=== PATIENT | male | born 1980 | race Hispanic/Latino ===

== ENCOUNTER 2023-08-21 08:03 | Emergency (ER) | payer SELFPAY ==
[2023-08-21] MEDS ORDERED: Lidocaine 1% PF 5 ML VIAL ONE (09:01)
[2023-08-21] MEDS ORDERED: Triple Antibiotic Oint 1 GM Packet ONE (09:36)
[2023-08-21] MEDS ORDERED: Boostrix 0.5 ML (Tdap) VIAL (>/=7 yrs of age) ONE (09:48)
== END 2023-08-21 10:10 | disposition home or self-care (01) ==
LOC: ERS 08:03
DX: L03.011 Cellulitis of right finger (principal); F17.210 Nicotine dependence, cigarettes, uncomplicated; Z23 Encounter for immunization
CPT/HCPCS: 10060; 90471; 90715